=== PATIENT | male | born 1970 | race Two or more races ===

== ENCOUNTER 2018-06-09 10:16 | Emergency (ER) | payer MEDICARE, MEDICAID ==
[~2018-06-09] VITALS: Ht 180.3 cm; Wt 115.8 kg
[~2018-06-09 10:16] MED LIST: ARIP15TA3 PO; BECL7.3A INH; BUSP5TAB3 PO; CYCL-1 PO; DIVA-81 PO; FLUT16SP2 BOTHNARES; HYDR-4353 PO; IBUP-1985 PO; METO-292 PO; MONT10TA21 PO; MORP60TA32 PO; NABU750T2 PO; OMEP20CA10 PO; QUET50TA PO; SUMA100T16 PO; TOPI200T PO
[2018-06-09 11:16] LABS: BASOPHILS # (AUTO) 0.1 X10'3 (0-0.2); BASOPHILS % (AUTO) 0.6 % (0-1); EOSINOPHILS # (AUTO) 0.1 X10'3 (0-0.9); EOSINOPHILS % (AUTO) 1.3 % (0-6); HEMATOCRIT 40.5 % (42.0-52.0); HEMOGLOBIN 13.9 g/dl (14.0-17.9); LYMPHOCYTES # (AUTO) 2.3 X10'3 (1.1-4.8); LYMPHOCYTES % (AUTO) 25.8 % (21-51); MEAN CORPUSCULAR HEMOGLOBIN 29.9 PG (27.0-31.0); MEAN CORPUSCULAR HGB CONC 34.4 % (33.0-36.5); MEAN CORPUSCULAR VOLUME 86.9 FL (78-98); MEAN PLATELET VOLUME 9.2 FL (7.4-10.4); MONOCYTES # (AUTO) 0.6 X10'3 (0-0.9); MONOCYTES % (AUTO) 6.5 % (2-12); NEUTROPHILS # (AUTO) 5.7 X10'3 (1.8-7.7); NEUTROPHILS % (AUTO) 65.8 % (42-75); PLATELET COUNT 293 X10'3 (140-440); RED BLOOD COUNT 4.66 X10'6 (4.70-6.10); RED CELL DISTRIBUTION WIDTH 13.6 % (11.5-14.5); WHITE BLOOD COUNT 8.8 X10'3 (4.5-11.0)
[2018-06-09 11:17] LABS: ALANINE AMINOTRANSFERASE 27 U/L (12-78); ALBUMIN 4.2 G/DL (3.4-5.0); ALBUMIN/GLOBULIN RATIO 1.1 (1.1-1.5); ALKALINE PHOSPHATASE 160 IU/L (46-116); ANION GAP 12 (8-16); ASPARTATE AMINO TRANSFERASE 28 U/L (10-37); BILIRUBIN,TOTAL 0.3 MG/DL (0.1-1.0); BLOOD UREA NITROGEN 18 MG/DL (7-18); BUN/CREATININE RATIO 16.1 (5.4-32.0); CALCIUM 9.2 MG/DL (8.5-10.1); CHLORIDE 103 MMOL/L (99-107); CREATININE 1.12 MG/DL (0.60-1.10); GLUCOSE 104 MG/DL (70-104); POTASSIUM 3.9 MMOL/L (3.5-5.1); SODIUM 139 MMOL/L (135-145); TOTAL CARBON DIOXIDE 24.1 MMOL/L (24-32); TOTAL PROTEIN 8.2 G/DL (6.4-8.2); eGFR 70 ML/MIN
[2018-06-09 11:20] LABS: TROPONIN I < 0.04 NG/ML (0.0-0.05)
[2018-06-09 11:48] VITALS: BP 187/121
[2018-06-09] MEDS ORDERED: HYDROcodone/acetaminophen 5mg/325mg tablet PO ONE (11:55)
== END 2018-06-09 12:17 | disposition home or self-care (01) ==
LOC: ER 10:16
DX: S80.11XA Contusion of right lower leg, initial encounter (principal); T85.698A Other mechanical complication of other specified internal prosthetic devices, implants and grafts, initial encounter; M25.521 Pain in right elbow; I10 Essential (primary) hypertension; J44.9 Chronic obstructive pulmonary disease, unspecified; G89.29 Other chronic pain; M54.9 Dorsalgia, unspecified; Z88.6 Allergy status to analgesic agent; Z88.2 Allergy status to sulfonamides; Z88.8 Allergy status to other drugs, medicaments and biological substances; W18.30XA Fall on same level, unspecified, initial encounter; Y93.89 Activity, other specified; Y92.89 Other specified places as the place of occurrence of the external cause; Y99.8 Other external cause status
CPT/HCPCS: 36415; 71045; 73080; 73590; 80053; 84484; 85025; 93005; 99285

== ENCOUNTER 2018-12-07 10:47 | Inpatient (IN) | payer MEDICARE, MEDICAID ==
[~2018-12-07] VITALS: Ht 180.3 cm; Wt 113.0 kg
[~2018-12-07 10:47] MED LIST changes: -FLUT16SP2 BOTHNARES; +FLUT16SP2 NS
[2018-12-07] MEDS ORDERED: normal saline 1000ML IV soln IVB ONE (10:55)
[2018-12-07] MEDS ORDERED: ondansetron/PF 4mg/2ml inj IV ONE (10:55)
[2018-12-07] MEDS: morphine 4 MG/ML inj SYRINge IV PRN ×3 (11:14→21:34)
[2018-12-07 11:19] LABS: BASOPHILS # (AUTO) 0.1 X10'3 (0-0.2); BASOPHILS % (AUTO) 0.6 % (0-1); EOSINOPHILS # (AUTO) 0.1 X10'3 (0-0.9); EOSINOPHILS % (AUTO) 0.4 % (0-6); HEMATOCRIT 48.8 % (42.0-52.0); HEMOGLOBIN 16.9 g/dl (14.0-17.9); LYMPHOCYTES # (AUTO) 2.3 X10'3 (1.1-4.8); LYMPHOCYTES % (AUTO) 18.8 % (21-51); MEAN CORPUSCULAR HGB CONC 34.6 g/dL (33.0-36.5); MEAN CORPUSCULAR VOLUME 89.6 FL (78-98); MEAN PLATELET VOLUME 9.8 FL (7.4-10.4); MONOCYTES # (AUTO) 0.7 X10'3 (0-0.9); MONOCYTES % (AUTO) 5.8 % (2-12); NEUTROPHILS # (AUTO) 9.3 X10'3 (1.8-7.7); NEUTROPHILS % (AUTO) 74.4 % (42-75); PLATELET COUNT 383 X10'3 (140-440); RED BLOOD COUNT 5.45 X10'6 (4.70-6.10); RED CELL DISTRIBUTION WIDTH 14.3 % (11.5-14.5); WHITE BLOOD COUNT 12.5 X10'3 (4.5-11.0)
[2018-12-07 11:29] LABS: ALANINE AMINOTRANSFERASE 26 U/L (12-78); ALBUMIN 4.7 G/DL (3.4-5.0); ALBUMIN/GLOBULIN RATIO 1.1 (1.1-1.5); ALKALINE PHOSPHATASE 93 IU/L (46-116); ANION GAP 14 (8-16); ASPARTATE AMINO TRANSFERASE 18 U/L (10-37); BILIRUBIN,TOTAL 0.8 MG/DL (0.1-1.0); BLOOD UREA NITROGEN 34 MG/DL (7-18); BUN/CREATININE RATIO 19.4 (5.4-32.0); CALCIUM 10.2 MG/DL (8.5-10.1); CHLORIDE 100 MMOL/L (99-107); CREATININE 1.75 MG/DL (0.60-1.10); GLUCOSE 135 MG/DL (70-104); POTASSIUM 4.3 MMOL/L (3.5-5.1); SODIUM 136 MMOL/L (135-145); TOTAL CARBON DIOXIDE 22.2 MMOL/L (24-32); TOTAL PROTEIN 9.1 G/DL (6.4-8.2); eGFR 42 ML/MIN
[2018-12-07 11:32] LABS: ETHANOL < 0.010 GM/DL (0.0-0.010); LIPASE 110 U/L (73-393); TROPONIN I < 0.04 NG/ML (0.0-0.05)
[2018-12-07 11:49] LABS: CLARITY,URINE CLEAR (Clear); GLUCOSE, URINE NEGATIVE (Neg); KETONES,URINE TRACE mg/dl (Neg); LEUKOCYTE ESTERASE ,URINE NEGATIVE (Neg); NITRITES, URINE NEGATIVE (Neg); OCCULT BLOOD,URINE NEGATIVE (Neg); PROTEIN,URINE 100 mg/dl (Neg)
[2018-12-07 11:52] LABS: COLOR,URINE DARK YELLOW (Yellow); UA COLLECTION TYPE CLN CATCH MIDSTREAM
[2018-12-07 11:55] LABS: BACTERIA,URINE NONE SEEN /HPF (Neg); MUCUS STRANDS MODERATE /LPF (Neg); RBC,URINE NONE SEEN /HPF (0-2); SQUAMOUS EPITHELIAL CELL,UR FEW /LPF (FEW); WBC,URINE 0-4 /HPF (0-4)
[2018-12-07 11:57] LABS: HYALINE CASTS 0-3 /LPF (NEGATIVE)
[2018-12-07 11:58] LABS: URINE AMPHETAMINE SCREEN POSITIVE (Neg); URINE BARBITUATE SCREEN NEGATIVE (Neg); URINE BENZODIAZEPINES SCREEN NEGATIVE (Neg); URINE CANNABINOID SCREEN POSITIVE (Neg); URINE COCAINE SCREEN NEGATIVE (Neg); URINE METHADONE SCREEN NEGATIVE (Neg); URINE OPIATE SCREEN NEGATIVE (Neg); URINE PHENCYCLIDINE SCREEN NEGATIVE (Neg)
[2018-12-07] MEDS ORDERED: piperacillin/tazo 3.375gm/50ml 50 ML IV ONE (12:50)
[2018-12-07] MEDS ORDERED: potassium Cl 20 mEq SR tablet PO PRN ×2 (13:05)
[2018-12-07] MEDS ORDERED: ondansetron/PF 4mg/2ml inj IV PRN (13:05)
[2018-12-07] MEDS ORDERED: magnesium hydroxide 30ml (MOM) UD suspension PO PRN (13:05)
[2018-12-07] MEDS ORDERED: magnesium 2GM in 50ml NS 50 ML IV PRN (13:05)
[2018-12-07] MEDS ORDERED: magnesium 4gm in 100ml NS 100 ML IV PRN (13:05)
[2018-12-07] MEDS ORDERED: magnesium Cl slow-release 64mg tablet PO PRN (13:05)
[2018-12-07] MEDS ORDERED: potassium Cl 40MEQ/NS 500ml 500 ML IV PRN ×2 (13:05)
[2018-12-07] MEDS ORDERED: acetaminophen 325mg tablet PO PRN ×2 (13:05)
[2018-12-07] MEDS: normal saline 1000ml 1,000 ML IV SCH ×2 (13:16→18:00)
[2018-12-07] MEDS ORDERED: LIDOcaine 2% 10ml TOPICAL JELLY (Urojet) MM ONE (13:35)
[2018-12-07] MEDS ORDERED: ACET-1025 PO (14:01)
[2018-12-07] MEDS ORDERED: ALBU18HF2 IH (14:03)
[2018-12-07] MEDS ORDERED: PRAZ5CAP2 PO (14:12)
[2018-12-07] MEDS ORDERED: GABA-532 PO (14:12)
[2018-12-07] MEDS ORDERED: DULO30CA51 PO (14:13)
[2018-12-07] MEDS ORDERED: FENO134C PO (14:14)
[2018-12-07] MEDS ORDERED: DIVA500T9 PO (14:14)
[2018-12-07] MEDS ORDERED: LISI-600 PO (14:16)
[2018-12-07] MEDS ORDERED: CHOL100062 PO (14:16)
[2018-12-07] MEDS ORDERED: LAMO100T89 PO (14:17)
[2018-12-07] MEDS ORDERED: ALBU2.5V10 NEB (14:17)
[2018-12-07] MEDS ORDERED: MULT-933 PO (14:19)
[2018-12-07] MEDS ORDERED: CALC500T99 PO (14:21)
[2018-12-07] MEDS ORDERED: OMEG1CAP2 PO (14:23)
[2018-12-07] MEDS ORDERED: LORA10TA7 PO (14:24)
[2018-12-07] MEDS ORDERED: NAPR220T67 PO (14:26)
--- NOTE | 2018-12-07 16:17 | NUR ---
received report from MARGARET Downing. Awaiting patient arrival to room 354c.
[2018-12-07 16:46] VITALS: BP 170/85
--- NOTE | 2018-12-07 16:47 | NUR ---
Received patient to room 354c. Patient able to ambulate from wheelchair to bed. Patient is A&O x4. NG suctioning to low intermittent, no drainage output seen in new canister at this time. Patient oriented to room and call light. Call light within patient's reach and bed is low and locked.
[2018-12-07 17:19] VITALS: BP 141/92
[2018-12-07] MEDS ORDERED: LIDOcaine Viscous 15ml cup MM ONE (17:55)
--- NOTE | 2018-12-07 18:20 | NUR ---
Problems reprioritized. Patient report given, questions answered & plan of care reviewed with MARGARET Ortiz.
[2018-12-07 19:00] VITALS: BP 145/76
[2018-12-07] MEDS: heparin, porcine 5000 units/ml vial SQ SCH (19:35)
[2018-12-07] MEDS ORDERED: ipratropium/albuterol 3ml nebule NEB PRN (19:40)
[2018-12-07] MEDS: gabapentin 100mg capsule PO SCH (20:00)
[2018-12-07] MEDS ORDERED: gabapentin 300mg capsule PO SCH (20:00)
[2018-12-07] MEDS ORDERED: pantoprazole 40 MG vial IV SCH (20:00)
[2018-12-07] MEDS: lamoTRIgine 100mg tablet PO SCH (20:00)
[2018-12-07] MEDS: QUEtiapine 25mg tablet PO SCH (21:00)
[2018-12-07] MEDS: prazosin 5mg capsule PO SCH (21:00)
[2018-12-07] MEDS: BUDESONIDE 0.25 MG/2 ML AMPUL.NEB IH SCH (21:27)
[2018-12-07] MEDS: ipratropium/albuterol 3ml nebule NEB SCH (21:28)
--- NOTE | 2018-12-07 23:12 | NUR ---
Patient in room [facility]. I have received report from MARGARET Villa and had the opportunity to ask questions and assume patient care. Addendum: 12/07/18 at 2313 by Diana Ham RN Amended: Links added.
[2018-12-08] VITALS: BP 124/76
[2018-12-08] MEDS: Chloraseptic (Phenol) Spray 177ml MM PRN ×3 (02:22→20:29)
[2018-12-08 06:19] LABS: BASOPHILS # (AUTO) 0.1 X10'3 (0-0.2); BASOPHILS % (AUTO) 0.6 % (0-1); EOSINOPHILS # (AUTO) 0.1 X10'3 (0-0.9); EOSINOPHILS % (AUTO) 1.5 % (0-6); HEMATOCRIT 41.6 % (42.0-52.0); HEMOGLOBIN 14.2 g/dl (14.0-17.9); LYMPHOCYTES # (AUTO) 2.9 X10'3 (1.1-4.8); LYMPHOCYTES % (AUTO) 31.4 % (21-51); MEAN CORPUSCULAR HEMOGLOBIN 31.2 PG (27.0-31.0); MEAN CORPUSCULAR HGB CONC 34.2 g/dL (33.0-36.5); MEAN CORPUSCULAR VOLUME 91.3 FL (78-98); MEAN PLATELET VOLUME 9.8 FL (7.4-10.4); MONOCYTES # (AUTO) 0.7 X10'3 (0-0.9); MONOCYTES % (AUTO) 7.5 % (2-12); NEUTROPHILS # (AUTO) 5.5 X10'3 (1.8-7.7); PLATELET COUNT 280 X10'3 (140-440); RED BLOOD COUNT 4.56 X10'6 (4.70-6.10); RED CELL DISTRIBUTION WIDTH 14.2 % (11.5-14.5); WHITE BLOOD COUNT 9.4 X10'3 (4.5-11.0)
--- NOTE | 2018-12-08 06:20 | NUR ---
Problems reprioritized. Patient report given, questions answered & plan of care reviewed with MARGARET Reyna. Addendum: 12/08/18 at 0621 by Diana Ham RN Amended: Links added.
[2018-12-08 06:26] LABS: ALBUMIN 3.7 G/DL (3.4-5.0); ANION GAP 11 (8-16); BLOOD UREA NITROGEN 37 MG/DL (7-18); BUN/CREATININE RATIO 23.9 (5.4-32.0); CALCIUM 9.1 MG/DL (8.5-10.1); CHLORIDE 105 MMOL/L (99-107); CREATININE 1.55 MG/DL (0.60-1.10); GLUCOSE 102 MG/DL (70-104); MAGNESIUM 1.9 MG/DL (1.5-2.4); POTASSIUM 3.9 MMOL/L (3.5-5.1); SODIUM 141 MMOL/L (135-145); TOTAL CARBON DIOXIDE 24.9 MMOL/L (24-32); eGFR 48 ML/MIN
[2018-12-08 07:00] VITALS: BP 138/78
--- NOTE | 2018-12-08 07:00 | NUR ---
Patient in room [facility]. I have received report from Diana and had the opportunity to ask questions and assume patient care. Addendum: 12/08/18 at 1058 by Maribell Valdez RN Amended: Links added.
[2018-12-08] MEDS: K and/or MAG REPLACEMENT MC SCH (07:01)
[2018-12-08] MEDS: morphine 4 MG/ML inj SYRINge IV PRN (07:10)
[2018-12-08] MEDS: gabapentin 100mg capsule PO SCH ×2 (08:00→20:32)
[2018-12-08] MEDS ORDERED: enoxaparin 40mg/0.4ml syringe SQ SCH (08:00)
[2018-12-08] MEDS: divalproex sodium 500mg tablet.DR PO SCH (08:00)
[2018-12-08] MEDS: lamoTRIgine 100mg tablet PO SCH ×2 (08:00→20:32)
[2018-12-08] MEDS: duloxetine 30mg CAPSULE.DR PO SCH (08:00)
[2018-12-08] MEDS: ipratropium/albuterol 3ml nebule NEB SCH ×3 (09:47→20:04)
[2018-12-08] MEDS: BUDESONIDE 0.25 MG/2 ML AMPUL.NEB IH SCH ×2 (09:47→20:04)
[2018-12-08] MEDS ORDERED: pneumococcal 23-VAL P-sac vacc 25 mcg/0.5ml vial IMVAC ONE (10:00)
[2018-12-08] MEDS: heparin, porcine 5000 units/ml vial SQ SCH ×2 (11:05→20:31)
[2018-12-08] MEDS: normal saline 1000ml 1,000 ML IV SCH ×2 (11:05→20:29)
[2018-12-08 12:00] VITALS: BP 129/78
[2018-12-08] MEDS ORDERED: morphine 2 MG/ML inj. syringe IV PRN (13:55)
--- NOTE | 2018-12-08 18:40 | NUR ---
Report to Shayna ROBLES
--- NOTE | 2018-12-08 18:46 | NUR ---
Patient in room [facility]. I have received report from MARGARET Reyna and had the opportunity to ask questions and assume patient care. Addendum: 12/08/18 at 1847 by Pia Stanton RN Amended: Links added.
[2018-12-08 19:00] VITALS: BP 129/84
[2018-12-08] MEDS: pantoprazole 40mg Tablet.DR PO SCH (20:00)
[2018-12-08] MEDS: prazosin 5mg capsule PO SCH (20:32)
[2018-12-08] MEDS: QUEtiapine 25mg tablet PO SCH (20:36)
[2018-12-08 23:30] VITALS: BP 144/72
[2018-12-09] MEDS: Chloraseptic (Phenol) Spray 177ml MM PRN (04:17)
[2018-12-09] MEDS: normal saline 1000ml 1,000 ML IV SCH ×2 (05:19→15:02)
--- NOTE | 2018-12-09 06:00 | NUR ---
Patient in room [facility]. I have received report from MONTANA ROBLES and had the opportunity to ask questions and assume patient care.
[2018-12-09 06:05] LABS: BASOPHILS # (AUTO) 0.1 X10'3 (0-0.2); BASOPHILS % (AUTO) 0.5 % (0-1); EOSINOPHILS # (AUTO) 0.1 X10'3 (0-0.9); EOSINOPHILS % (AUTO) 0.5 % (0-6); HEMATOCRIT 40.9 % (42.0-52.0); HEMOGLOBIN 14.2 g/dl (14.0-17.9); LYMPHOCYTES # (AUTO) 1.8 X10'3 (1.1-4.8); LYMPHOCYTES % (AUTO) 16.9 % (21-51); MEAN CORPUSCULAR HEMOGLOBIN 31.3 PG (27.0-31.0); MEAN CORPUSCULAR HGB CONC 34.8 g/dL (33.0-36.5); MEAN CORPUSCULAR VOLUME 90.1 FL (78-98); MEAN PLATELET VOLUME 9.3 FL (7.4-10.4); MONOCYTES # (AUTO) 0.7 X10'3 (0-0.9); MONOCYTES % (AUTO) 6.2 % (2-12); NEUTROPHILS # (AUTO) 8.1 X10'3 (1.8-7.7); NEUTROPHILS % (AUTO) 75.9 % (42-75); PLATELET COUNT 244 X10'3 (140-440); RED BLOOD COUNT 4.54 X10'6 (4.70-6.10); RED CELL DISTRIBUTION WIDTH 13.9 % (11.5-14.5); WHITE BLOOD COUNT 10.7 X10'3 (4.5-11.0)
[2018-12-09 06:15] LABS: ALBUMIN 3.7 G/DL (3.4-5.0); ANION GAP 8 (8-16); BLOOD UREA NITROGEN 28 MG/DL (7-18); BUN/CREATININE RATIO 23.5 (5.4-32.0); CALCIUM 9.2 MG/DL (8.5-10.1); CHLORIDE 106 MMOL/L (99-107); CREATININE 1.19 MG/DL (0.60-1.10); GLUCOSE 108 MG/DL (70-104); MAGNESIUM 2.1 MG/DL (1.5-2.4); POTASSIUM 3.6 MMOL/L (3.5-5.1); SODIUM 141 MMOL/L (135-145); eGFR 65 ML/MIN
--- NOTE | 2018-12-09 06:31 | NUR ---
Problems reprioritized. Patient report given, questions answered & plan of care reviewed with MARGARET Dallas. Addendum: 12/09/18 at 0632 by Pia Stanton RN Amended: Links added.
[2018-12-09] MEDS: K and/or MAG REPLACEMENT MC SCH (08:00)
[2018-12-09] MEDS: ipratropium/albuterol 3ml nebule NEB SCH ×3 (08:13→20:04)
[2018-12-09] MEDS: BUDESONIDE 0.25 MG/2 ML AMPUL.NEB IH SCH ×2 (08:13→20:04)
[2018-12-09] MEDS: lamoTRIgine 100mg tablet PO SCH ×2 (09:01→20:00)
[2018-12-09] MEDS: divalproex sodium 500mg tablet.DR PO SCH (09:01)
[2018-12-09] MEDS: pantoprazole 40mg Tablet.DR PO SCH ×2 (09:01→20:00)
[2018-12-09] MEDS: gabapentin 100mg capsule PO SCH ×2 (09:01→20:00)
[2018-12-09] MEDS: duloxetine 30mg CAPSULE.DR PO SCH (09:02)
[2018-12-09] MEDS: heparin, porcine 5000 units/ml vial SQ SCH ×2 (09:02→21:08)
[2018-12-09 12:00] VITALS: BP 169/92
[2018-12-09] MEDS ORDERED: morphine 2 MG/ML inj. syringe IV PRN (14:55)
--- NOTE | 2018-12-09 15:05 | NUR ---
Dr. Higginbotham rounded on pt. MD stated no surgery is indicated and to continue NGT.
--- NOTE | 2018-12-09 18:30 | NUR ---
Patient in room [facility]. I have received report from MARGARET Dallas and had the opportunity to ask questions and assume patient care. Addendum: 12/10/18 at 0136 by Pia Stanton RN Amended: Links added.
[2018-12-09] MEDS: mag hydrox/Alum hydrox/simeth 30ml oral suspension PO PRN (18:46)
[2018-12-09 19:00] VITALS: BP 157/91
[2018-12-09] MEDS: prazosin 5mg capsule PO SCH (21:00)
[2018-12-09] MEDS: QUEtiapine 25mg tablet PO SCH (21:00)
[2018-12-09 23:45] VITALS: BP 141/89
[2018-12-10] MEDS: normal saline 1000ml 1,000 ML IV SCH ×2 (01:28→11:48)
[2018-12-10 05:48] LABS: ALBUMIN 3.6 G/DL (3.4-5.0); ANION GAP 11 (8-16); BLOOD UREA NITROGEN 20 MG/DL (7-18); BUN/CREATININE RATIO 18.7 (5.4-32.0); CALCIUM 9.4 MG/DL (8.5-10.1); CHLORIDE 108 MMOL/L (99-107); CREATININE 1.07 MG/DL (0.60-1.10); GLUCOSE 94 MG/DL (70-104); MAGNESIUM 2.1 MG/DL (1.5-2.4); POTASSIUM 3.6 MMOL/L (3.5-5.1); SODIUM 145 MMOL/L (135-145); TOTAL CARBON DIOXIDE 26.4 MMOL/L (24-32); eGFR 74 ML/MIN
[2018-12-10 05:49] LABS: BASOPHILS # (AUTO) 0.1 X10'3 (0-0.2); BASOPHILS % (AUTO) 0.7 % (0-1); EOSINOPHILS # (AUTO) 0.1 X10'3 (0-0.9); EOSINOPHILS % (AUTO) 1.1 % (0-6); HEMATOCRIT 38.4 % (42.0-52.0); HEMOGLOBIN 13.4 g/dl (14.0-17.9); LYMPHOCYTES # (AUTO) 1.8 X10'3 (1.1-4.8); LYMPHOCYTES % (AUTO) 19.2 % (21-51); MEAN CORPUSCULAR HEMOGLOBIN 31.6 PG (27.0-31.0); MEAN CORPUSCULAR VOLUME 90.3 FL (78-98); MEAN PLATELET VOLUME 9.3 FL (7.4-10.4); MONOCYTES # (AUTO) 0.8 X10'3 (0-0.9); MONOCYTES % (AUTO) 8.3 % (2-12); NEUTROPHILS # (AUTO) 6.7 X10'3 (1.8-7.7); NEUTROPHILS % (AUTO) 70.7 % (42-75); PLATELET COUNT 234 X10'3 (140-440); RED BLOOD COUNT 4.26 X10'6 (4.70-6.10); RED CELL DISTRIBUTION WIDTH 14.1 % (11.5-14.5); WHITE BLOOD COUNT 9.5 X10'3 (4.5-11.0)
[2018-12-10 07:00] VITALS: BP 150/92
--- NOTE | 2018-12-10 07:08 | NUR ---
Problems reprioritized. Patient report given, questions answered & plan of care reviewed with MARGARET Rock. Addendum: 12/10/18 at 0708 by Pia Stanton RN Amended: Links added.
--- NOTE | 2018-12-10 07:08 | NUR ---
Patient in room [facility]. I have received report from GINO ROBLES and had the opportunity to ask questions and assume patient care.
[2018-12-10] MEDS: BUDESONIDE 0.25 MG/2 ML AMPUL.NEB IH SCH (07:50)
[2018-12-10] MEDS: ipratropium/albuterol 3ml nebule NEB SCH ×2 (07:50→12:34)
[2018-12-10] MEDS: pantoprazole 40mg Tablet.DR PO SCH (08:00)
[2018-12-10] MEDS: K and/or MAG REPLACEMENT MC SCH (08:00)
[2018-12-10] MEDS: lamoTRIgine 100mg tablet PO SCH (08:14)
[2018-12-10] MEDS: duloxetine 30mg CAPSULE.DR PO SCH (08:14)
[2018-12-10] MEDS: gabapentin 100mg capsule PO SCH (08:14)
[2018-12-10] MEDS: divalproex sodium 500mg tablet.DR PO SCH (08:15)
[2018-12-10] MEDS: heparin, porcine 5000 units/ml vial SQ SCH (08:16)
[2018-12-10] MEDS: mag hydrox/Alum hydrox/simeth 30ml oral suspension PO PRN (08:19)
[2018-12-10 11:00] VITALS: BP 153/95
--- NOTE | 2018-12-10 12:38 | NUR ---
NG removed per dr gonzalez, and commenced on clear lqd diet. will continue to monitor.
--- NOTE | 2018-12-10 15:23 | NUR ---
patient able to tolerate regular food. . seen by Dr Cr and Dr pinedo. Is for DC .Dc home via cab in stable condition. All DC instructions given to patient. patient DC home 1530hrs.
== END 2018-12-10 15:15 | disposition home or self-care (01) | DRG 388 ==
LOC: ER 10:48 → SUR 3N 15:31 → CMPBEDREQ 19:41
PROVIDERS: ADMIT Hospitalist; ATTEND Internal Medicine
PROC: 0D9670Z Drainage of Stomach with Drainage Device, Via Natural or Artificial Opening (ICD-10-PCS; 2018-12-07)
PROC: 3E0234Z Introduction of Serum, Toxoid and Vaccine into Muscle, Percutaneous Approach (ICD-10-PCS; principal; 2018-12-08)
DX: K56.600 Partial intestinal obstruction, unspecified as to cause (principal); N17.0 Acute kidney failure with tubular necrosis; I10 Essential (primary) hypertension; F15.10 Other stimulant abuse, uncomplicated; G89.4 Chronic pain syndrome; G40.909 Epilepsy, unspecified, not intractable, without status epilepticus; G43.909 Migraine, unspecified, not intractable, without status migrainosus; M54.9 Dorsalgia, unspecified; J44.9 Chronic obstructive pulmonary disease, unspecified; Z23 Encounter for immunization; Z90.49 Acquired absence of other specified parts of digestive tract; Z88.2 Allergy status to sulfonamides; Z88.8 Allergy status to other drugs, medicaments and biological substances; Z79.899 Other long term (current) drug therapy; Z87.442 Personal history of urinary calculi; Z85.038 Personal history of other malignant neoplasm of large intestine
CPT/HCPCS: 36415; 74176; 80048; 80053; 80305; 80320; 81001; 83605; 83690; 83735; 84145; 84484; 85025; 87040; 87070; 90732; 93005; 94640; 94760; 96361; 96365; 96375; 99285; C9113; G0378; J1644; J2270; J2405; J2543; J7030

== ENCOUNTER 2019-04-15 10:20 | Emergency (ER) | payer MEDICARE, MEDICAID ==
[~2019-04-15] VITALS: Ht 180.3 cm; Wt 115.9 kg
[~2019-04-15 10:20] MED LIST changes: -ARIP15TA3 PO; -BECL7.3A INH; -BUSP5TAB3 PO; -CYCL-1 PO; -DIVA-81 PO; +DIVA500T9 PO; +DULO30CA52 PO; -FLUT16SP2 NS; +GABA-532 PO; -HYDR-4353 PO; -IBUP-1985 PO; +LAMO100T89 PO; -METO-292 PO; -MONT10TA21 PO; -MORP60TA32 PO; -NABU750T2 PO; -OMEP20CA10 PO; +PRAZ5CAP2 PO; -SUMA100T16 PO; -TOPI200T PO
--- NOTE | 2019-04-15 11:13 | NUR ---
PATIENT IS IN A MOTORIZED WC DUE TO "BACK PROBLEMS AND MY LEGS GIVING UP" . PATIENT STATES THAT HE FELL LAST NIGHT AND HIS RIGHT LOWER LEG IS BOTH ONFIRE AND NUMB. PATIENT HAS A HX OF A SURGICAL REPAIR TO HIS LEFT LEG WITH "PINS AND SCREWS" IN THE LOWER LEG WITHIN THE LAST YEAR.
[2019-04-15 11:49] VITALS: BP 145/89
== END 2019-04-15 11:54 | disposition home or self-care (01) ==
LOC: ER 10:21
DX: S80.11XA Contusion of right lower leg, initial encounter (principal); I10 Essential (primary) hypertension; J44.9 Chronic obstructive pulmonary disease, unspecified; F15.90 Other stimulant use, unspecified, uncomplicated; G89.29 Other chronic pain; Z87.442 Personal history of urinary calculi; Z88.2 Allergy status to sulfonamides; Z88.6 Allergy status to analgesic agent; Z79.899 Other long term (current) drug therapy; Z85.038 Personal history of other malignant neoplasm of large intestine; Z98.890 Other specified postprocedural states; W18.39XA Other fall on same level, initial encounter; Y93.89 Activity, other specified; Y92.89 Other specified places as the place of occurrence of the external cause; Y99.8 Other external cause status
CPT/HCPCS: 73590; 99284

== ENCOUNTER 2023-08-18 12:59 | Emergency (ER) | payer BC, MEDICAID ==
[~2023-08-18] VITALS: Ht 180.3 cm; Wt 110.0 kg
[~2023-08-18 12:59] MED LIST changes: +LAMO100T PO; -LAMO100T89 PO
[2023-08-18 13:25] LABS: BASOPHILS # (AUTO) 0.1 X10'3 (0-0.2); BASOPHILS % (AUTO) 0.9 % (0-1); EOSINOPHILS # (AUTO) 0.2 X10'3 (0-0.9); EOSINOPHILS % (AUTO) 1.9 % (0-6); HEMATOCRIT 49.5 % (42.0-52.0); MEAN CORPUSCULAR HEMOGLOBIN 30.2 PG (27.0-31.0); MEAN CORPUSCULAR HGB CONC 34.3 g/dL (33.0-36.5); MEAN PLATELET VOLUME 8.5 FL (7.4-10.4); MONOCYTES # (AUTO) 0.7 X10'3 (0-0.9); MONOCYTES % (AUTO) 6.1 % (2-12); NEUTROPHILS # (AUTO) 5.8 X10'3 (1.8-7.7); NEUTROPHILS % (AUTO) 54.1 % (42-75); PLATELET COUNT 320 X10'3 (140-440); RED BLOOD COUNT 5.63 X10'6 (4.70-6.10); RED CELL DISTRIBUTION WIDTH 14.7 % (11.5-14.5); WHITE BLOOD COUNT 10.8 X10'3 (4.5-11.0)
[2023-08-18 13:38] LABS: ALANINE AMINOTRANSFERASE 18 U/L (12-78); ALBUMIN 5.3 G/DL (3.4-5.0); ALBUMIN/GLOBULIN RATIO 1.4 (1.1-1.5); ALKALINE PHOSPHATASE 82 IU/L (46-116); ANION GAP 9 (8-16); ASPARTATE AMINO TRANSFERASE 31 U/L (10-37); BILIRUBIN,TOTAL 0.6 MG/DL (0.1-1.0); BLOOD UREA NITROGEN 14 MG/DL (7-18); BUN/CREATININE RATIO 12.1 (10.0-20.0); CALCIUM 9.5 MG/DL (8.5-10.1); CHLORIDE 100 MMOL/L (99-107); CREATININE 1.16 MG/DL (0.60-1.10); GLUCOSE 108 MG/DL (70-104); POTASSIUM 3.7 MMOL/L (3.5-5.1); SODIUM 137 MMOL/L (135-145); TOTAL PROTEIN 9.2 G/DL (6.4-8.2); eCRCL 78 ML/MIN; eGFR 66 ML/MIN
[2023-08-18 13:45] LABS: PRO BRAIN NATRIURETIC PEPTIDE 37 PG/ML (0-125)
[2023-08-18 14:43] VITALS: TEMP 97.7
[2023-08-18] MEDS ORDERED: AMLO10TA PO (16:01)
[2023-08-18] MEDS ORDERED: amLODIPine 5mg tablet PO ONE (16:05)
[2023-08-18 16:28] VITALS: BP 183/119; PULSE 82; RESP 18; O2SAT 98
== END 2023-08-18 16:30 | disposition home or self-care (01) ==
LOC: ER 12:59
DX: I10 Essential (primary) hypertension (principal); J44.9 Chronic obstructive pulmonary disease, unspecified; G89.29 Other chronic pain; M54.9 Dorsalgia, unspecified; F15.10 Other stimulant abuse, uncomplicated; Z88.2 Allergy status to sulfonamides; Z88.8 Allergy status to other drugs, medicaments and biological substances; Z88.6 Allergy status to analgesic agent; Z79.899 Other long term (current) drug therapy
CPT/HCPCS: 36415; 71045; 80053; 83880; 84484; 85025; 93005; 99285